=== PATIENT | male | born 1940 | race Asian ===

== ENCOUNTER 2019-09-21 15:59 | Inpatient (IN) | payer BC ==
[~2019-09-21] VITALS: Ht 167.6 cm; Wt 56.7 kg
[2019-09-21 16:08] VITALS: BP 132/96
--- NOTE | 2019-09-21 16:08 | NUR ---
TO ED 07 VIA WHEELCHAIR.
[2019-09-21] MEDS ORDERED: NACL 0.9% 1,000 ML IV ONE (16:15)
--- NOTE | 2019-09-21 16:36 | NUR ---
Dr. Dahl is evaluating the patient at bedside.
[2019-09-21 16:50] LABS: BASOPHILS % (AUTO) 0.4 % (0.0-2.0); EOSINOPHILS % (AUTO) 0.3 % (0.0-4.0); HEMATOCRIT 35.8 % (36-52); HEMOGLOBIN 12.2 g/dL (12.0-18.0); LYMPHOCYTES # (AUTO) 1.1 K/uL (2.0-11.5); LYMPHOCYTES % (AUTO) 15.8 % (20.5-51.1); MEAN CORPUSCULAR HEMOGLOBIN 28 pg (27-31); MEAN CORPUSCULAR HGB CONC 34 g/dL (33-37); MEAN CORPUSCULAR VOLUME 82.5 fL (80-94); MONOCYTES # (AUTO) 0.6 K/uL (0.8-1.0); MONOCYTES % (AUTO) 8.8 % (1.7-9.3); NEUTROPHILS # (AUTO) 5.1 K/uL (1.8-7.7); NEUTROPHILS % (AUTO) 74.7 % (42.2-75.2); PLATELET COUNT (AUTO) 244 K/uL (140-450); RED BLOOD CELL COUNT(AUTO) 4.34 MIL/uL (4.20-6.10); WHITE BLOOD COUNT (AUTO) 6.9 K/uL (4.8-10.8)
--- NOTE | 2019-09-21 17:03 | NUR ---
TOOK PT TO CT SCAN
[2019-09-21 17:09] LABS: ALBUMIN 3.7 g/dL (3.4-5.0); ASPARTATE AMINOTRANSFERASE 53 U/L (15-37); CARBON DIOXIDE 24.3 mmol/L (21-32); CHLORIDE 76 mmol/L (98-107); CREATININE 0.8 mg/dL (0.6-1.3); GLUCOSE 122 mg/dL (74-106); POTASSIUM 3.3 mmol/L (3.5-5.1); TOTAL BILIRUBIN 0.7 mg/dL (0.0-1.0); UREA NITROGEN, BLOOD 13 mg/dL (7-18)
--- NOTE | 2019-09-21 17:11 | NUR ---
Patient returned from CT scan. RN re-evaluating the patient at bedside.
[2019-09-21 17:21] LABS: SODIUM SERUM 107 mmol/L (136-145)
--- NOTE | 2019-09-21 17:44 | NUR ---
Stable. VSS. Labs back. Sodium low. NS running. aware.
[2019-09-21] MEDS ORDERED: AMLO10TA PO (17:50)
[2019-09-21] MEDS ORDERED: ORE25 PO (17:50)
[2019-09-21] MEDS ORDERED: ASPI-1884 PO (17:50)
[2019-09-21] MEDS ORDERED: HYDROcodone/APAP 5/325 MG 1 TAB TAB PO PRN (18:10)
[2019-09-21] MEDS ORDERED: NACL 0.9% 1,000 ML IV SCH (18:10)
[2019-09-21] MEDS ORDERED: DOCUSATE SODIUM 100 MG GELCAP PO PRN (18:10)
[2019-09-21] MEDS ORDERED: ACETAMINOPHEN 325 MG TAB PO PRN (18:10)
[2019-09-21] MEDS ORDERED: MORPHINE SULFATE 2 MG/ML SYR IVP PRN (18:10)
[2019-09-21] MEDS ORDERED: LORazepam 2 MG/ML VIAL IM/IVP PRN (18:10)
[2019-09-21] MEDS ORDERED: ZOLPIDEM 5 MG TAB PO PRN (18:10)
[2019-09-21] MEDS ORDERED: ONDANSETRON 4 MG/2 ML VIAL IM/IVP PRN (18:10)
[2019-09-21 18:44] LABS: PROTHROMBIN TIME 10.9 secs (10.8-13.4)
[2019-09-21 18:48] LABS: CHOL/HDL RATIO 2.6 (1-4.5); FREE T4 (FREE THYROXINE) 1.5 ng/dL (0.76-1.46); MAGNESIUM 1.6 mg/dL (1.8-2.4); PHOSPHORUS 2.8 mg/dL (2.5-4.9)
--- NOTE | 2019-09-21 19:15 | NUR ---
REPORT FROM PIEDAD WINTER RECEIVED, TRANSFER OF CARE AT THIS TIME
--- NOTE | 2019-09-21 19:30 | NUR ---
PATIENT AOX4, BREATHING EVEN AND UNLABORED. PT GIVEN ANOTHER URINAL
--- NOTE | 2019-09-21 19:45 | NUR ---
RECEIVED PATIENT FROM ER VIA GURCRIS. BSSR RECEIVED AT BEDSIDE FROM PAULA WINTER. PATIENT ADMITTED FOR HYPONATREMIA. PATIENT IS AFEBRILE AND VS WNL. GSC 15. PATIENT IS CALM AND COOPERATIVE. BREATH SOUNDS CLEAR TO AUSCULTATION. BOWEL SOUNDS ACTIVE. ABDOMEN IS SOFT AND NONTENDER. THERE IS A #20 IN THE LEFT WRIST WITH PATIENT RECEIVING NS AT 100 ML/HR. EXPLAINED POC TO PATIENT AND PATIENT'S TO INCLUDE ELECTROLYTE REPLENISHMENT AND IVFS. PATIENT AND PATIENT'S VERBALIZED UNDERSTANDING. MRSA SWAB COLLECTED. ORIENTED PATIENT AND PATIENT'S TO ICU CARE ENVIRONMENT. PATIENT REPOSITIONED FOR COMFORT. HOB AT 30 DEGREES WITH BED IN LOWEST POSITION. WILL CONTINUE TO MONITOR PATIENT.
[2019-09-21] MEDS ORDERED: POTASSIUM CHLORIDE 10 MEQ TABER PO ONE ×2 (19:50→22:15)
--- NOTE | 2019-09-21 19:57 | NUR ---
Patient will be admitted to care of DR MONCADA. Admited to ICU. Will go to room 5. Belongings list completed. Report to NKECHI WINTER.
[2019-09-21 20:00] VITALS: BP 119/62
[2019-09-21] MEDS ORDERED: MAG SULF 2000 MG/WATER PREMIX 100 ML IV ONE (20:00)
--- NOTE | 2019-09-21 20:30 | NUR ---
DR. GREGG AT BEDSIDE TO ASSESS PATIENT. TO PUT IN NEW ORDERS. WILL FOLLOW UP WITH NEW ORDERS.
[2019-09-21 20:53] LABS: APPEARANCE,URINE CLEAR (CLEAR); BILIRUBIN,URINE NEGATIVE (NEGATIVE); BLOOD, URINE 1+ (NEGATIVE); COLOR,URINE YELLOW (YELLOW); LEUKOCYTE ESTERASE ,URINE NEGATIVE (NEGATIVE); NITRITE, URINE NEGATIVE (NEGATIVE); UGLUCOSE NEGATIVE (NEGATIVE)
[2019-09-21 20:58] LABS: BARBITURATE, URINE NEG. ng/ml (NEG <=200); BENZODIAZEPINE, URINE NEG. ng/mL (NEG <=200); CANNABINOID, URINE NEG. ng/mL (NEG <=50); COCAINE, URINE NEG. ng/mL (NEG <=300); OPIATE, URINE NEG. ng/mL (NEG <=2000); PHENCYCLIDINE SCREEN,URINE NEG. ng/mL (NEG <=25)
[2019-09-21] MEDS ORDERED: AMLO5TAB PO (20:59)
--- NOTE | 2019-09-21 21:21 | NUR ---
COLLAR FELLER AT BEDSIDE FOR PROCEDURE.
[2019-09-21 21:35] LABS: ANION GAP 9.9 (8-16); CARBON DIOXIDE 25.1 mmol/L (21-32); CHLORIDE 83 mmol/L (98-107); CREATININE 0.8 mg/dL (0.6-1.3); GLUCOSE 99 mg/dL (74-106); UREA NITROGEN, BLOOD 11 mg/dL (7-18)
[2019-09-21 21:40] LABS: SODIUM SERUM 115 mmol/L (136-145)
[2019-09-21 22:00] VITALS: BP 137/52
[2019-09-21] MEDS ORDERED: POTASSIUM CHLORIDE 40 MEQ, LIDOCAINE MPF 1% 25 MG in NACL 0.9% 250 ML IV ONE (22:00)
[2019-09-21] MEDS ORDERED: KCL 20 MEQ/WATER INJ PREMIX 200 ML IV ONE (22:15)
[2019-09-22] VITALS (11 sets, daily range): BP systolic 105–143; BP diastolic 49–74
[2019-09-22 02:36] LABS: ANION GAP 8.6 (8-16); CARBON DIOXIDE 27.9 mmol/L (21-32); CHLORIDE 88 mmol/L (98-107); CREATININE 0.8 mg/dL (0.6-1.3); GLUCOSE 107 mg/dL (74-106); POTASSIUM 3.5 mmol/L (3.5-5.1); SODIUM SERUM 121 mmol/L (136-145); UREA NITROGEN, BLOOD 11 mg/dL (7-18)
--- NOTE | 2019-09-22 03:37 | NUR ---
EXPLAINED INDICATIONS AND BENEFITS OF SEIZURE PRECAUTIONS. PATIENT VERBALIZED UNDERSTANDING. NEEDS ATTENDED. CONTINUE TO MONITOR PATIENT.
[2019-09-22] MEDS ORDERED: MAG SULF 2000 MG/WATER PREMIX 100 ML IV SCH (05:15)
[2019-09-22] MEDS: DEXTROSE 5% 1,000 ML IV SCH ×2 (05:37→21:33)
[2019-09-22 06:11] LABS: BASOPHILS % (AUTO) 0.3 % (0.0-2.0); EOSINOPHILS % (AUTO) 0.5 % (0.0-4.0); HEMATOCRIT 36.7 % (36-52); HEMOGLOBIN 12.4 g/dL (12.0-18.0); LYMPHOCYTES # (AUTO) 1.3 K/uL (2.0-11.5); LYMPHOCYTES % (AUTO) 17.7 % (20.5-51.1); MEAN CORPUSCULAR HEMOGLOBIN 28 pg (27-31); MEAN CORPUSCULAR HGB CONC 34 g/dL (33-37); MEAN CORPUSCULAR VOLUME 83.6 fL (80-94); MONOCYTES % (AUTO) 14.1 % (1.7-9.3); NEUTROPHILS % (AUTO) 67.4 % (42.2-75.2); PLATELET COUNT (AUTO) 213 K/uL (140-450); RED BLOOD CELL COUNT(AUTO) 4.39 MIL/uL (4.20-6.10); RED CELL DISTRIBUTION WIDTH 21.8 % (11.6-13.7); WHITE BLOOD COUNT (AUTO) 7.4 K/uL (4.8-10.8)
[2019-09-22 06:48] LABS: ANION GAP 9.4 (8-16); CARBON DIOXIDE 26.4 mmol/L (21-32); CHLORIDE 91 mmol/L (98-107); GLUCOSE 97 mg/dL (74-106); POTASSIUM 3.8 mmol/L (3.5-5.1); SODIUM SERUM 123 mmol/L (136-145); UREA NITROGEN, BLOOD 12 mg/dL (7-18)
[2019-09-22 06:52] LABS: MAGNESIUM 2.7 mg/dL (1.8-2.4); PHOSPHORUS 2.6 mg/dL (2.5-4.9)
--- NOTE | 2019-09-22 07:10 | NUR ---
RECEIVED PATIENT FROM COMMERCIAL REAL ESTATE ATTORNEY RN. PATIENT ADMITTED FOR HYPONATREMIA. PT IS AAOX4. PATIENT IS CALM AND COOPERATIVE. SB ON MONITOR, HR IN THE 40S. BREATH SOUNDS CLEAR TO AUSCULTATION. BOWEL SOUNDS ACTIVE. ABDOMEN IS SOFT AND NONTENDER. IV 20G TO RIGHT WRIST, DRESSING INTACT AND DRY. RUNNING D5 AT 50ML/HR. FALL PRECAUTIONS IN PLACE, WILL CONTINUE TO MONITOR PT.
--- NOTE | 2019-09-22 07:11 | NUR ---
ALL PATIENT'S NEEDS MET DURING SHIFT. BSSR GIVEN TO ANITA RN AND MARIAH RN FOR CONTINUITY OF CARE.
[2019-09-22 07:20] LABS: CREATININE 0.8 mg/dL (0.6-1.3)
--- NOTE | 2019-09-22 08:00 | NUR ---
DENIES PAIN, DENIES N/V. LAST BM WAS YESTERDAY, AND NO MORE DIARRHEA.
[2019-09-22] MEDS: ASPIRIN 81 MG TAB.CHEW PO SCH (08:18)
[2019-09-22] MEDS: amLODIPine 5 MG TAB PO SCH (08:18)
--- NOTE | 2019-09-22 08:20 | NUR ---
MADE PT AWARE HE IS ON 1L ORAL FLUID RESTRICTION.
--- NOTE | 2019-09-22 08:30 | NUR ---
PATIENT HAS BEEN SCREENED AND CATEGORIZED MODERATE NUTRITION RISK. PATIENT WILL BE SEEN WITHIN 3-5 DAYS OF ADMISSION. 09/24/19 09/26/[address]
[2019-09-22] MEDS ORDERED: amLODIPine 5 MG TAB PO SCH (09:00)
[2019-09-22] MEDS ORDERED: PROBIOTIC SCREEN 1 EA MISC MC PRN (11:35)
--- NOTE | 2019-09-22 12:50 | NUR ---
PT WORKED WITH PHYSICAL THERAPY, SAT IN RECLINER AND ATE LUNCH. ASSISTED PT BACK TO BED. DENIES ANY PAIN.
[2019-09-22 14:04] LABS: ANION GAP 10.8 (8-16); CHLORIDE 95 mmol/L (98-107); CREATININE 0.9 mg/dL (0.6-1.3); GLUCOSE 137 mg/dL (74-106); POTASSIUM 3.8 mmol/L (3.5-5.1); SODIUM SERUM 125 mmol/L (136-145); UREA NITROGEN, BLOOD 16 mg/dL (7-18)
--- NOTE | 2019-09-22 15:40 | NUR ---
DR BOSS NEPHLOKESH CAME, MADE HIM AWARE OF NA 125, DR BOSS SAID IF NA IS CLOSE TO 120, OK TO DC D5W, IF STILL HIGH CONTINUE WITH D5W, HE WANTS NA TO BE AROUND 120 FOR TONIGHT.
--- NOTE | 2019-09-22 16:00 | NUR ---
PT PLAYING WITH HIS CELL PHONE, NO S/S OF DISTRESS.
--- NOTE | 2019-09-22 16:20 | NUR ---
DISCHARGE PLANNING: THIS IS A 78 Y/O MALE FROM HOME, WHO CAME IN DUE TO DIZZINESS AND MUSCLE CRAMPS X 2 DAYS. PAST MEDICAL HISTORY INCLUDE HTN AND GERD. INITIAL DIAGNOSIS OF HYPONATREMIA. CURRENT LABS INCLUDE WBC 7.4, H/H 12.4/36.7, NA/K 125/3.8, BUN/CREA 16/0.9 AND MAG 2.7. MRSA NARES PENDING. CRITICAL CARE AND NEPHRO CONSULTS IN PLACE. DC PLAN BACK TO HOME ONCE STABLE. Addendum: 09/23/19 at 1246 by Gina Bran CM DC PLANNING SEEN BY BUFFET MANAGER DR BOSS HOLDING HOME [employer] DC IVF AND CONTINUE FREE WATER RESTRICTION NA+ 133 CARDIO RECOMMENDED FOR OUT PATIENT HOLTER MONITOR. DC PLAN TO GO HOME WITH [facility] FOR PT, FAXED TO THE INSURANCE [employer] PRUDENT PROGRAM REVIEW DIRECTOR VETO TO FOLLOW
[2019-09-22 17:30] LABS: CARBON DIOXIDE 23.8 mmol/L (21-32); CHLORIDE 96 mmol/L (98-107); CREATININE 0.9 mg/dL (0.6-1.3); GLUCOSE 116 mg/dL (74-106); POTASSIUM 3.8 mmol/L (3.5-5.1); SODIUM SERUM 128 mmol/L (136-145); UREA NITROGEN, BLOOD 17 mg/dL (7-18)
--- NOTE | 2019-09-22 19:12 | NUR ---
REPORT RECEIVED FROM AM SHIFT RN. PT A&O X4. ABLE TO FOLLOW COMMANDS. PT CALM AND COOPERATIVE. SINUS BRADYCARDIA ON MONITOR. IV SITE R WRIST 20 GAUGE INFUSING D5W AT 100ML/HR. LUNG SOUNDS CLEAR. ABDOMEN SOFT AND ROUND. BOWEL SOUNDS ACTIVE. SKIN INTACT, WARM AND DRY. CAP REFILL LESS THAN 2 SECONDS. ABLE TO USE URINAL. HOB 30 DEGREES. BED LOCKED IN LOWEST POSITION.
--- NOTE | 2019-09-22 19:45 | NUR ---
PT TRANSFERRED TO TELE 110 B. PT IN STABLE CONDITION. NO DISTRESS NOTED. VITALS SIGNS STABLE.
--- NOTE | 2019-09-22 19:45 | NUR ---
RECEIVED BEDSIDE REPORT FROM [employer]ENS[employer] DIVISION DIRECTOR FOR PT'S CONTINUITY OF CARE. PT WAS TRANSFERRED FROM ICU, PT AAOX4, AMBULATED TO THE BED WITH ASSIST, IS ON VOUCHER CLERK, ON ROOM AIR, HAS RIGHT WRIST 20G WITH D5 AT 100ML/HR, SCD IN PLACE. ORIENTED PT TO THE HOSPITAL/UNIT ENVIRONMENT, AND PACKER ROUTINE, PT VERBALIZED UNDERSTANDING. SAFETY MEASURES AND SZ PRECAUTION IN PLACE, AND CALL LIGHT IS WITHIN REACH. WILL MONITOR PT THROUGHOUT SHIFT.
[2019-09-22] MEDS: ATORVASTATIN 20 MG TAB PO SCH (20:49)
[2019-09-22 21:00] LABS: ANION GAP 12.6 (8-16); CARBON DIOXIDE 26.1 mmol/L (21-32); CHLORIDE 96 mmol/L (98-107); CREATININE 0.9 mg/dL (0.6-1.3); GLUCOSE 139 mg/dL (74-106); POTASSIUM 4.7 mmol/L (3.5-5.1); SODIUM SERUM 130 mmol/L (136-145); UREA NITROGEN, BLOOD 17 mg/dL (7-18)
--- NOTE | 2019-09-22 21:15 | NUR ---
ADMINISTERED SCHEDULED MEDICATIONS ORDERED. PT TOLERATED THEM WELL. PT IS ON REGULAR DIET, PT REQUESTED FOR, AND PROVIDED A SANDWICH, ABLE TO SWALLOW, NO ASPIRATION NOTED, MD AWARE. PT'S NEEDS MET AT THIS TIME. WILL CONTINUE TO MONITOR PT.
[2019-09-23] VITALS: BP 139/55
--- NOTE | 2019-09-23 00:15 | NUR ---
VS CHECKED AND CHARTED. PT WAS ASLEEP, DENIES PAIN OR DISCOMFORT. WILL CONTINUE TO MONITOR PT.
--- NOTE | 2019-09-23 02:30 | NUR ---
LAB AT BEDSIDE FOR BNP DRAW. PT WAS ASLEEP, WITH NO SIGNS OF DISTRESS. WILL CONTINUE TO MONITOR PT.
[2019-09-23 02:55] LABS: ANION GAP 8.7 (8-16); CHLORIDE 100 mmol/L (98-107); GLUCOSE 118 mg/dL (74-106); POTASSIUM 4.7 mmol/L (3.5-5.1); SODIUM SERUM 133 mmol/L (136-145); UREA NITROGEN, BLOOD 17 mg/dL (7-18)
[2019-09-23 04:00] VITALS: BP 156/51
--- NOTE | 2019-09-23 04:00 | NUR ---
VS CHECKED AND CHARTED. PT SLEEPING WITH NO SIGNS OF DISTRESS. WILL CONTINUE TO MONITOR PT.
--- NOTE | 2019-09-23 05:35 | NUR ---
PT HR 40 ON TELE MONITOR. NOTIFIED MD, NO NEW ORDERS. WILL CONTINUE TO MONITOR PT.
--- NOTE | 2019-09-23 06:30 | NUR ---
PT LYING DOWN, WOKE UP DT IV BEEPING. FLUSHED IV, PATENT AND INTACT. PT DENIES ANY PAIN OR DISCOMFORT. WILL ENDORSE TO AM SHIFT RN FOR PT'S CONTINUITY OF CARE.
[2019-09-23 07:06] LABS: BASOPHILS % (AUTO) 0.6 % (0.0-2.0); EOSINOPHILS # (AUTO) 0.2 K/uL (0-0.4); EOSINOPHILS % (AUTO) 2.6 % (0.0-4.0); HEMATOCRIT 38.2 % (36-52); HEMOGLOBIN 12.4 g/dL (12.0-18.0); LYMPHOCYTES # (AUTO) 1.7 K/uL (2.0-11.5); LYMPHOCYTES % (AUTO) 26.2 % (20.5-51.1); MEAN CORPUSCULAR HEMOGLOBIN 28 pg (27-31); MEAN CORPUSCULAR HGB CONC 33 g/dL (33-37); MEAN CORPUSCULAR VOLUME 85.3 fL (80-94); MONOCYTES # (AUTO) 1.1 K/uL (0.8-1.0); MONOCYTES % (AUTO) 17.4 % (1.7-9.3); NEUTROPHILS # (AUTO) 3.5 K/uL (1.8-7.7); NEUTROPHILS % (AUTO) 53.2 % (42.2-75.2); PLATELET COUNT (AUTO) 231 K/uL (140-450); RED BLOOD CELL COUNT(AUTO) 4.48 MIL/uL (4.20-6.10); RED CELL DISTRIBUTION WIDTH 21.8 % (11.6-13.7); WHITE BLOOD COUNT (AUTO) 6.5 K/uL (4.8-10.8)
--- NOTE | 2019-09-23 07:30 | NUR ---
RECEIVED REPORT AT BEDSIDE FROM [facility] SHIFT NURSE. PATIENT LYING IN BED AWAKE AND RESTING ON BED. PT IS AAOX4. RESPIRATION EVEN AND UNLABORED ON RA. NOT IN ANY ACUTE DISTRESS, IV ON R WRIST 20G, CLEAN AND INTACT, INFUSING D5 AT 100 ML/HR. ON FLUID RESTRICTION OF 1 LITER/DAY. SKIN CLEAN AND DRY. PT IS CONTINENT AND ABLE TO AMBULATE WITH ASSIST TO USE THE BATHROOM. TELE MONITOR ATTACHED. SAFETY MEASURES IN PLACE. CALL LIGHT WITHIN REACH. CONTINUE TO MONITOR. KEEP BED AT LOW POSITION. ASSESSMENT DONE.
--- NOTE | 2019-09-23 07:36 | NUR ---
DISCONTINUED D5 IVF PER MD ORDER.
[2019-09-23 07:58] LABS: MAGNESIUM 2.3 mg/dL (1.8-2.4)
[2019-09-23 08:00] VITALS: BP 160/64
[2019-09-23] MEDS: ASPIRIN 81 MG TAB.CHEW PO SCH (09:51)
[2019-09-23] MEDS: amLODIPine 5 MG TAB PO SCH (09:52)
--- NOTE | 2019-09-23 09:53 | NUR ---
ADMINISTERED ALL DUE MEDS. CHECKED BP160/64. 60 HR. NOT IN ANY ACUTE DISTRESS. TOLERATED WELL. CONT. TO MONITOR. WE'LL RECHECK THE BP IN AN HOUR. EDUCATE PATIENT ABOUT MED. VERBALIZED UNDERSTANDING.
--- NOTE | 2019-09-23 10:36 | NUR ---
PT IS TALKING TO CALEB AT BEDSIDE. NO SIGNS OF DISTRESS NOTED. [place] MONITOR ATTACHED. SAFETY MEASURES IN PLACE.
--- NOTE | 2019-09-23 10:45 | NUR ---
RE-CHECKED THE BP 159/53. HR 49. NO DISTRESS NOTED. NO SOB. NO C/O PAIN. APPEARS CALM. AT BEDSIDE. CALL LIGHT WITHIN REACH. CON'T TO MONITOR.
--- NOTE | 2019-09-23 11:15 | NUR ---
PT AWAKE AND TALKING TO CALEB AT BEDSIDE. NO SIGNS OF DISTRESS NOTED. SAFETY MEASURES IN PLACE. TELE MONITOR ATTACHED.
[2019-09-23 12:00] VITALS: BP 162/56
--- NOTE | 2019-09-23 12:30 | NUR ---
BP 162/56, NOTIFIED DR WESTBROOK AND DR WESTBROOK WAS AWARE AND SHE WILL ORDER MED.
[2019-09-23] MEDS ORDERED: amLODIPine 5 MG TAB PO SCH (13:45)
--- NOTE | 2019-09-23 13:56 | NUR ---
ADMINISTERED AMLODIPINE 5MG PO. TOLERATED WELL. MED ED PROVIDED. PATIENT SITTING ON BED, NOT IN ANY DISTRESS. NO C/O PAIN, RESPIRATION EVEN AND UNLABORED. SAFETY MEASURES IN PLACE, CALL LIGHT WITHIN REACH.
--- NOTE | 2019-09-23 14:06 | NUR ---
GAVE REPORT AT BEDSIDE TO MOY VERDUGO FOR CONTINUITY OF CARE. NO SOB. NO DISTRESS NOTED.
[2019-09-23 16:00] VITALS: BP 177/55
[2019-09-23] MEDS ORDERED: hydrALAZINE 20 MG/ML VIAL IVP SCH (17:40)
--- NOTE | 2019-09-23 18:32 | NUR ---
SCHEDULED HYDRALAZINE GIVEN AT THIS TIME PER MD ORDERS D/T ELEVATED BP. WILL CONTINUE TO MONITOR.
--- NOTE | 2019-09-23 19:21 | NUR ---
GAVE REPORT TO COMMUNITY MENTAL HEALTH WORKER NURSE FOR CONTINUITY OF CARE. PATIENT IN STABLE CONDITION.
--- NOTE | 2019-09-23 19:30 | NUR ---
RECEIVED PT ON BED, AAOX4, ABLE TO MAKE NEEDS KNOWN, VITAL SIGNS STABLE, SB-SR ON TELE, ASYMPTOMATIC, DENIES ANY PAIN, NO SOB NOTED, PLAN OF CARE DISCUSSED, SAFETY MEASURES IN PLACE, CALL LIGHT WITHIN REACH.
[2019-09-23 20:00] VITALS: BP 138/69
--- NOTE | 2019-09-23 20:15 | NUR ---
AMBULATED TO BR WITH STANDBY ASSIST, VOIDED FREELY, STATED MILD DIZZINESS WHEN AMBULATING, ALL NEEDS ATTENDED.
[2019-09-23] MEDS: ATORVASTATIN 20 MG TAB PO SCH (20:46)
--- NOTE | 2019-09-23 20:50 | NUR ---
DUE MEDS ADMINISTERED WITH EDUCATION PROVIDED.
[2019-09-23 21:52] LABS: ANION GAP 12.9 (8-16); CHLORIDE 101 mmol/L (98-107); CREATININE 0.8 mg/dL (0.6-1.3); GLUCOSE 108 mg/dL (74-106); POTASSIUM 3.9 mmol/L (3.5-5.1); SODIUM SERUM 134 mmol/L (136-145); UREA NITROGEN, BLOOD 17 mg/dL (7-18)
[2019-09-24] VITALS: BP 143/52
--- NOTE | 2019-09-24 | NUR ---
PT SLEEPING, EASILY AROUSABLE, VITAL SIGNS STABLE, SB WITH HR IN THE 40'S, ASYMPTOMATIC, DENIES ANY PAIN OR SOB, CONTINUE TO MONITOR CLOSELY.
[2019-09-24 04:20] VITALS: BP 165/60
--- NOTE | 2019-09-24 04:20 | NUR ---
PT SLEEPING, EASILY AROUSABLE, VITAL SIGNS TAKEN, BP-164/60, HR-49, DENIES ANY PAIN OR SOB, DR SIMON MADE AWARE, WILL ORDER PRN HYDRALAZINE, PT MONITORED CLOSELY.
[2019-09-24] MEDS ORDERED: hydrALAZINE 20 MG/ML VIAL IVP PRN (04:35)
--- NOTE | 2019-09-24 04:50 | NUR ---
BP-172/66, HR-49, HYDRALAZINE 5MG IVP GIVEN PRN ORDERED BY DR SIMON, WILL RECHECKED BP, NO DISTRESS AT THIS TIME, MONITORED CLOSELY.
--- NOTE | 2019-09-24 06:00 | NUR ---
PT SLEEPING, EASILY AROUSABLE, BP RECHECKED:165/62, HR-55, DENIES CHEST PAIN, NO SOB NOTED, MONITORED CLOSELY.
[2019-09-24 07:15] LABS: BASOPHILS # (AUTO) 0.1 K/uL (0.00-0.22); BASOPHILS % (AUTO) 0.6 % (0.0-2.0); EOSINOPHILS # (AUTO) 0.3 K/uL (0-0.4); EOSINOPHILS % (AUTO) 3.3 % (0.0-4.0); HEMATOCRIT 35.6 % (36-52); HEMOGLOBIN 11.6 g/dL (12.0-18.0); LYMPHOCYTES % (AUTO) 18.9 % (20.5-51.1); MEAN CORPUSCULAR HEMOGLOBIN 28 pg (27-31); MEAN CORPUSCULAR HGB CONC 33 g/dL (33-37); MEAN CORPUSCULAR VOLUME 86.1 fL (80-94); MONOCYTES # (AUTO) 1.2 K/uL (0.8-1.0); MONOCYTES % (AUTO) 11.2 % (1.7-9.3); NEUTROPHILS # (AUTO) 6.9 K/uL (1.8-7.7); PLATELET COUNT (AUTO) 257 K/uL (140-450); RED BLOOD CELL COUNT(AUTO) 4.14 MIL/uL (4.20-6.10); RED CELL DISTRIBUTION WIDTH 22.3 % (11.6-13.7); WHITE BLOOD COUNT (AUTO) 10.5 K/uL (4.8-10.8)
[2019-09-24 07:19] LABS: ANION GAP 13.1 (8-16); CARBON DIOXIDE 25.1 mmol/L (21-32); CHLORIDE 103 mmol/L (98-107); CREATININE 0.9 mg/dL (0.6-1.3); GLUCOSE 113 mg/dL (74-106); POTASSIUM 4.2 mmol/L (3.5-5.1); SODIUM SERUM 137 mmol/L (136-145); UREA NITROGEN, BLOOD 13 mg/dL (7-18)
--- NOTE | 2019-09-24 07:19 | NUR ---
PT SLEEPING, NO SIGNS OF DISTRESS, REPORT GIVEN TO MOY GLASER FOR CONTINUITY OF CARE.
--- NOTE | 2019-09-24 07:21 | NUR ---
RECEIVED BEDSIDE REPORT FROM CATASTROP[employer] CLAIMS SUPERVISOR NURSE ROSEANNE FOR CONTINUITY OF CARE. PT IS RESTING ON BED AT THIS TIME. AROUSABLE TO VOICE. RESPIRATION EVEN AND UNLABORED ON RA. NO SIGNS OF DISTRESS NOTED. IV CLEAN AND INTACT, SL. SKIN CLEAN AND DRY. PT IS CONTINENT AND ABLE TO AMBULATE WITH STEADY GAIT. TELE MONITOR ATTACHED. FLUID RESTRICTION IN PLACE AND SIGN POSTED ON DOOR. SAFETY MEASURES IN PLACE. BED IN LOW POSITION AND CALL LIGHT WITHIN REACH.
[2019-09-24 07:33] LABS: PHOSPHORUS 2.6 mg/dL (2.5-4.9)
[2019-09-24 08:00] VITALS: BP 150/51
[2019-09-24] MEDS: ASPIRIN 81 MG TAB.CHEW PO SCH (08:40)
--- NOTE | 2019-09-24 08:41 | NUR ---
CHECKED BP PRIOR TO MEDS ADMINISTRATION, BP 150/51, PULSE 66. ADMINISTRATED MEDS PER MD ORDER, MEDS ED PROVIDED, AND PT VERBALIZED OK. PT TOLERATED MEDS WELL. DR WESTBROOK IS TALKING TO PT AT BEDSIDE. NO SIGNS OF DISTRESS NOTED. PT DENIED PAIN, SOB, AND DIZZINESS. TELE MONITOR ATTACHED. SAFETY MEASURES IN PLACE. BED IN LOW POSITION AND CALL LIGHT WITHIN REACH.
[2019-09-24] MEDS ORDERED: LISINOPRIL 10 MG TAB PO SCH (09:00)
[2019-09-24] MEDS ORDERED: amLODIPine 5 MG TAB PO SCH (09:00)
[2019-09-24] MEDS ORDERED: LISI10TA11 PO (10:31)
[2019-09-24] MEDS ORDERED: AMLO5TAB PO (10:31)
[2019-09-24] MEDS ORDERED: ATOR10TA PO (10:31)
--- NOTE | 2019-09-24 10:41 | NUR ---
ADMINISTERED LISINOPRIL PER MD ORDER, MED ED PROVIDED TO PT AND PT SAID OK. PT TOLERATED PO MED WELL. INFORMED PT THAT HE WILL BE DISCHARGE HOME TODAY AND CLOTHING SUPERVISOR WILL ARRANGE HOME HEALTH FOR PT, PT WAS AWARE AND SAID " I CAN DRIVE HOME AFTER LUNCH LIKE AROUND 2 PM." WILL PREPARE DISCHARGE DOCUMENT. PT IS RESTING ON BED AT THIS TIME. NO SIGNS OF DISTRESS NOTED. TELE MONITOR ATTACHED. SAFETY MEASURES IN PLACE.
--- NOTE | 2019-09-24 11:40 | NUR ---
PT IS RESTING ON BED AT THIS TIME. RESPIRATION EVEN AND UNLABORED ON RA. NO SIGNS OF DISTRESS NOTED. TELE MONITOR ATTACHED. SAFETY MEASURES IN PLACE.
[2019-09-24 12:00] VITALS: BP 161/58
--- NOTE | 2019-09-24 12:05 | NUR ---
ASSESSED PT'S VITAL SIGNS AND BP 161/58 PULSE 60. PT COMPLAINED OF DRY COUGH, BUT DENIED CHEST PAIN, DIZZINESS AND SOB. NOTIFIED DR WESTBROOK AND DR WESTBROOK WAS AWARE.
[2019-09-24] MEDS ORDERED: BENZ-196 PO (12:10)
[2019-09-24] MEDS ORDERED: BENZONATATE 100 MG CAPLF PO PRN (12:10)
--- NOTE | 2019-09-24 12:30 | NUR ---
PER DR WESTBROOK, DUE TO PT'S HIGH BP, WILL KEEP PT TIL EVENING TO MONITOR. EXPLAINED TO PT AND PT WAS AWARE AND AGREEABLE. PER PT, HE WANTS TO FINISH DINNER THEN DC HOME THAT HE STATED "I DON'T WANT TO DISCHARGE HOME AND GO OUT TO EAT AT THE [facility]. I WANT TO EAT DINNER HERE."
--- NOTE | 2019-09-24 13:11 | NUR ---
PT COMPLAINED OF DRY COUGH, MEDICATED WITH PRN COUGH MED, MED ED PROVIDED AND PT SAID OK. PT AWAKE AND RESTING ON BED AT THIS TIME. NO SIGNS OF DISTRESS NOTED. TELE MONITOR ATTACHED. SAFETY MEASURES IN PLACE.
--- NOTE | 2019-09-24 15:41 | NUR ---
PT IS RESTING ON BED. RESPIRATION EVEN AND UNLABORED ON RA. NO SIGNS OF DISTRESS NOTED. TELE MONITOR ATTACHED. SAFETY MEASURES IN PLACE.
[2019-09-24 16:00] VITALS: BP 156/52
--- NOTE | 2019-09-24 17:38 | NUR ---
PT AWAKE AND WATCHING TV ON BED. DENIED PAIN, SOB, AND DIZZINESS. TELE MONITOR ATTACHED. NO SIGNS OF DISTRESS NOTED. SAFETY MEASURES IN PLACE.
--- NOTE | 2019-09-24 18:15 | NUR ---
PT IS HAVING DINNER AT THIS TIME. NO SIGNS OF DISTRESS NOTED. TELE MONITOR ATTACHED.
--- NOTE | 2019-09-24 18:45 | NUR ---
PT IS CHANGING INTO HIS OWN CLOTHES. REMOVED TELE MONITOR AND RETURNED TO FISHING ACCESSORIES MAKER.
--- NOTE | 2019-09-24 18:55 | NUR ---
DISCHRAGE INSTRUCTION PROVIDED TO PT AT BEDSIDE. EDUCATED PT ON FOLLOW UP WITH MD, SEEK MEDICAL HELP IN CASE OF MEDICAL EMERGENCY, MEDICATION REGIMEN, SIDE EFFECTS AND DIET. ANSWERED ALL PT'S QUESTIONS. REMOVED ALL ARM BANDS. DC IV, CANNULA INTACT AND NO BLEEDING AT IV SITE. PT IS UP TO DATE WITH FLU AND PNA VACCINES. PT IS AWARE THAT HIS PRESCRIPTION SEND TO HIS PREFERRED PHARMACY [facility] IN [place]. PT CHECKED ALL THE CABINETS AND TOOK ALL HIS BELONGINGS HOME. PT IS AAOX4 AND ABLE TO COMMUNICATE APPROPRIATELY. PT DENIED PAIN AND ANY DIZZINESS. NO SIGNS OF DISTRESS NOTED. RETAIL RECEIVING CLERK ESCORTED PT TO THE FRONT LOBBY. PT IS GOING TO DRIVE HOME BY HIMSELF. PT IS IN STABLE CONDITION.
[2019-09-27] MEDS ORDERED: AMLO10TA PO (11:57)
== END 2019-09-24 18:55 | disposition home or self-care (01) | DRG 641 ==
LOC: MED 15:59 → MIC 18:10 → MTU 09-22 19:45
PROVIDERS: ADMIT General Practice; ATTEND General Practice
DX: E87.1 Hypo-osmolality and hyponatremia (principal); K21.9 Gastro-esophageal reflux disease without esophagitis; I10 Essential (primary) hypertension; E87.6 Hypokalemia; K52.9 Noninfective gastroenteritis and colitis, unspecified; E83.42 Hypomagnesemia; I73.9 Peripheral vascular disease, unspecified; E86.0 Dehydration
CPT/HCPCS: 36415; 70450; 71045; 80048; 80053; 80305; 81003; 82150; 82436; 82570; 82948; 83036; 83690; 83735; 83880; 83930; 83935; 84100; 84300; 84439; 84443; 84484; 85025; 85610; 85730; 87081; 87804; 93005; 93925; 97110; 97116; 97161-GP; 99285; J0360; J1644; J2001; J3475; J3480; J7030; J7060; Q0092